=== PATIENT | female | born 1950 | race Caucasian/White ===

== ENCOUNTER 2018-05-07 08:38 | Observation (INO) ==
[2018-05-07] MEDS ORDERED: Pantoprazole 80 MG in 0.9 % Sodium Chloride 50 ML IVPB ONE (09:12)
[2018-05-07] MEDS ORDERED: 0.9 % Sodium Chloride 1,000 ML IVC ONE (09:12)
[2018-05-07] MEDS ORDERED: Ondansetron 4 MG/2 ML VIAL IVP ONE (09:12)
[2018-05-07] MEDS ORDERED: Isovue-370 500 ML INFUS..BTL IV ONE (09:13)
--- NOTE | 2018-05-07 09:25 | Emergency Department Note ---
Disposition Clinical Impression: Hemoptysis Disposition: Admitted As Inpatient Condition: Fair Referrals: Lin Templeton, [employer] [Primary Care Provider] - Forms: ED Satisfaction Letter Time of Disposition: 11:36 General Adult HPI - General Chief complaint: ED Shortness of Breath/Dyspnea Stated complaint: "coughing up blood" Time Seen by Provider: 05/07/18 09:02 Source: patient, family Limitations: no limitations Nursing Notes Reviewed: Yes Vital Signs Reviewed: Yes - History of Present Illness HPI Narrative: 68-year-old female with significant past medical history of breast cancer awaiting radiation once her surgical scar heals presenting to the emergency arch chief complaint of coughing up blood. Patient states it happened 2 times previously and spontaneously resolved. She states this morning she started coughing up large clots of blood. Mixture between dark and bright red. Large quarter size clots. She states she started having some difficulty breathing afterwards. Denies any chest pain, dizziness or syncope. She does state she is currently on Plavix and baby aspirin for previous stent placed 4 years ago. Patient denies any history of blood clots, DVT, PE or GI bleeding. Patient denies any melena, hematochezia, hematuria. Pain Scale: 0 - Related Data Home Medications Medication Instructions Recorded Confirmed Aspirin [Lo-Dose Aspirin EC] 81 mg PO DAILY 07/17/16 02/27/18 Isosorbide MONOnitrate (24 HR) 15 mg PO HS 07/17/16 02/27/18 [Imdur] Levothyroxine [Synthroid] 88 mcg PO MOWEFR 07/17/16 02/27/18 Albuterol Neb [Proventil Neb] 2.5 mg IH Q4HR PRN 01/06/18 02/27/18 Albuterol Sulfate [Proair 2 puff IH Q4H PRN 01/06/18 02/27/18 Respiclick] Clopidogrel [Plavix] 75 mg PO DAILY 01/06/18 02/27/18 Gemfibrozil [Lopid] 600 mg PO HS 01/23/18 02/27/18 Atenolol [Tenormin] 50 mg PO DAILY 02/06/18 02/27/18 Cholecalciferol (D-3) [Vitamin D] 2,000 unit PO DAILY 02/06/18 02/27/18 Lisinopril [Zestril] 20 mg PO HS 02/06/18 02/27/18 Metformin HCl [Glucophage] 1,000 mg PO BID 02/06/18 02/27/18 Venlafaxine HCl [Venlafaxine HCl 37.5 mg PO DAILY 02/06/18 02/27/18 ER] glipiZIDE [Glipizide] 10 mg PO DAILY 02/06/18 02/27/18 Zolpidem [Ambien] 5 mg PO HS PRN 02/18/18 02/27/18 Previous Rx's Medication Instructions Recorded OxyCODONE Immed Rel [Roxicodone 5 5 mg PO Q6HR PRN 5 Days #20 tablet 02/06/18 MG] cephALEXin [Keflex] 500 mg PO TID 14 Days #42 capsule 02/18/18 Allergies Allergy/AdvReac Type Severity Reaction Status Date / Time acetaminophen Allergy Hives Verified 05/07/18 11:34 meperidine [From Demerol] Allergy Hives Verified 05/07/18 11:34 sertraline [From Zoloft] Allergy Swelling Verified 05/07/18 11:34 of Lip/Tongue/Throat terbutaline [From Brethine] Allergy Hives Verified 05/07/18 11:34 All systems ED: reviewed and negative except as stated. Constitutional: Denies: fever, chills, weakness Eyes: Reports: as per HPI ENT ED: Reports: as per HPI Cardiovascular: Denies: chest pain, palpitations, syncope Respiratory: Reports: dyspnea, hemoptysis. Denies: wheezes Gastrointestinal: Denies: abdominal pain, nausea, vomiting, diarrhea, hematochezia Genitourinary: Reports: as per HPI Musculoskeletal: Reports: as per HPI Integumentary: Reports: as per HPI Neurological: Denies: weakness, numbness, paresthesias Psychiatric: Reports: as per HPI Endocrine: Reports: as per HPI Hematological/Lymphatic: Reports: as per HPI Allergic/Immunologic: Reports: as per HPI Past Medical History - Past Medical History Attestation: Yes The following information was validated with the patient. Medical history: Reports: cancer, COPD, diabetes, GERD, hypertension, thyroid disease, other Surgical history: Reports: orthopedic, other, other Psychiatric history: Reports: anxiety, depression, panic disorder - Social History Smoking Status: Former smoker Smokeless Tobacco Status: No Alcohol use: Reports: none Drug use: Reports: none Physical Exam - General Limitations: no limitations General appearance: alert, in no apparent distress - Head Head exam: atraumatic, normocephalic, normal inspection - Eye Eye exam: Present: normal appearance. Absent: scleral icterus, conjunctival injection - ENT ENT exam: normal exam, mucous membranes moist, other (No active bleeding in the posterior oropharynx. No clots noted in the patient's mouth.) - Neck Neck exam: Present: normal inspection, full ROM. Absent: tenderness, meningismus - Chest Chest inspection: Present: normal inspection, symmetric chest wall rise. Absent : tenderness, rash - Expanded Chest Exam Breast: other: left (Clean, dry dressing noted over the inferior base of the left breast.) - Respiratory Respiratory exam: Present: normal lung sounds bilaterally. Absent: respiratory distress, wheezes, stridor - Cardiovascular Cardiovascular exam: Present: regular rate, normal rhythm, normal heart sounds - Abdominal Exam Abdominal exam: Present: soft, Non-Tender. Absent: distention, guarding, rebound - Extremities Exam Extremities exam: Present: normal inspection, full ROM - Neurological Exam Neurological exam: Present: alert, oriented X3 - Psychiatric Psychiatric exam: Present: normal affect, normal mood - Skin Skin exam: Present: warm Course Course Narrative: 68-year-old female presenting with hemoptysis versus hematemesis. Patient is alert and oriented 3 in the room with stable vital signs. We will obtain a CT chest, basic laboratory analysis along with type and screen. We will provide patient with Protonix, Zofran. Disposition will be admission pending results. Patient agrees with this plan. - Reevaluation(s) Reevaluation #1: Patient's laboratory analysis unchanged from baseline. CTA does show concern for right lower lobe pneumonia. Due to patient's hemoptysis will plan to consult pulmonology. I spoke with Dr. Mensah who agrees to see the patient when she is admitted for possible bronch. The patient and the patient at this time for hemoptysis and further evaluation. We will provide the patient with a dose of Levaquin in the emergency department for possible right lower lobe pneumonia. I spoke with hospice on-call Dr. Smith who agrees to accept the patient at this time. Patient is alert and oriented 3 in room stable vital signs. Patient agrees with this plan. Vital Signs Temperature 98.1 F 08/16/18 08:48 Pulse Rate 73 05/07/18 08:48 Respiratory Rate 26 05/07/18 08:48 Blood Pressure 140/85 05/07/18 08:48 O2 Sat by Pulse Oximetry 91 05/07/18 08:48 Temperature 98.1 F 05/07/18 08:54 Pulse Rate 62 05/07/18 10:59 Respiratory Rate 16 05/07/18 10:59 Blood Pressure 115/68 05/07/18 10:59 O2 Sat by Pulse Oximetry 95 05/07/18 10:59 Oxygen Delivery Oxygen Delivery Room Air Medical Decision Making - Lab Data Result diagrams: 05/07/18 09:13 05/07/18 09:13 Lab Results 05/07/18 05/07/18 05/07/18 Range/Units 09:13 09:13 09:13 WBC 9.3 (4.3-11.1) K/mcL RBC 4.19 (3.82-4.97) M/mcL Hgb 11.8 (11.5-15.4) g/dL Hct 35.9 (35.3-44.9) % MCV 85.7 (83.0-100.0) fL MCH 28.2 (28.0-33.3) pg MCHC 32.9 (31.6-35.5) g/dL RDW 13.4 (11.5-14.5) % Plt Count 216 (140-400) K/mcL MPV 9.8 (9.4-12.4) fL Immature Gran % 0.4 (0-4) % Seg Neutrophils % 62.9 % Lymphocytes % 26.7 % Monocytes % 6.2 % Eosinophils % 3.5 % Basophils % 0.3 % Neutrophils # 5.9 (1.6-8.9) K/mcL Lymphocytes # 2.5 (0.6-4.6) K/mcL Monocytes # 0.6 (0.0-1.3) K/mcL Eosinophils # 0.3 (0.0-0.6) K/mcL Basophils # 0.0 (0.0-0.2) K/mcL PT 10.9 (9.4-12.1) Seconds INR 1.0 APTT 33.2 (26.0-36.0) Seconds Sodium 134 L (136-145) mEq/L Potassium 4.1 (3.5-5.1) mEq/L Chloride 105 (98-107) mEq/L Carbon Dioxide 19 L (23-29) mEq/L BUN 16 (8-23) mg/dL Creatinine 0.60 (0.60-1.20) mg/dL Est GFR ( Amer) > 60 (> 60) Est GFR (Non-Af Amer) > 60 (> 60) BUN/Creatinine Ratio 27 H (6-26) Glucose 175 H (70-105) mg/dL Calculated Osmolality 283 (280-300) Calcium 9.3 (8.6-10.3) mg/dL Total Bilirubin 0.4 (0.3-1.0) mg/dL AST 25 (13-39) Units/L ALT 20 (7-52) Units/L Alkaline Phosphatase 56 (34-104) Units/L Serum Total Protein 6.9 (6.4-8.9) g/dL Albumin 4.0 (3.5-5.7) g/dL Globulin 2.9 (2.4-3.5) g/dL Albumin/Globulin Ratio 1.4 (1.1-2.2) - EKG Data EKG #1 EKG attestation: Yes I reviewed and interpreted this EKG. EKG results narrative: Sinus rhythm. 72 bpm. LA interval 144, QRS 82, QTC 436. No signs of acute ST segment elevation or ischemia. Compared to previous EKG completed on 2017 no significant changes noted. Attestation Statement - Attestation Attestation: I, Neel Humphreys DO, examined this patient [id number] and my medical decision-making was reviewed with Dr. Rosmery Martinez, Resident Physician. I agree with the documented findings, disposition and treatment plan as described except to the extent set forth below. Please see my progress notes for details.
[2018-05-07 09:30] LABS: Basophils % 0.3 %; Eosinophils # 0.3 K/mcL (0.0-0.6); Eosinophils % 3.5 %; Hematocrit 35.9 % (35.3-44.9); Hemoglobin 11.8 g/dL (11.5-15.4); Immature Granulocytes % 0.4 % (0-4); Lymphocytes # 2.5 K/mcL (0.6-4.6); Lymphocytes % 26.7 %; Mean Corpuscular HGB Conc 32.9 g/dL (31.6-35.5); Mean Corpuscular Hemoglobin 28.2 pg (28.0-33.3); Mean Corpuscular Volume 85.7 fL (83.0-100.0); Mean Platelet Volume 9.8 fL (9.4-12.4); Monocytes # 0.6 K/mcL (0.0-1.3); Monocytes % 6.2 %; Neutrophils # 5.9 K/mcL (1.6-8.9); Platelet Count 216 K/mcL (140-400); Red Blood Count 4.19 M/mcL (3.82-4.97); Red Cell Distribution Width 13.4 % (11.5-14.5); Segmented Neutrophils % 62.9 %
[2018-05-07 09:37] LABS: Prothrombin Time 10.9 Seconds (9.4-12.1)
[2018-05-07 09:39] LABS: Activated Partial Thrombo Time 33.2 Seconds (26.0-36.0)
[2018-05-07 09:52] LABS: Alanine Aminotransferase 20 Units/L (7-52); Albumin/Globulin Ratio 1.4 (1.1-2.2); Alkaline Phosphatase 56 Units/L (34-104); Aspartate Amino Transferase 25 Units/L (13-39); BUN/Creatinine Ratio 27 (6-26); Bilirubin,Total 0.4 mg/dL (0.3-1.0); Blood Urea Nitrogen 16 mg/dL (8-23); Calcium 9.3 mg/dL (8.6-10.3); Carbon Dioxide 19 mEq/L (23-29); Chloride 105 mEq/L (98-107); Globulin 2.9 g/dL (2.4-3.5); Glucose 175 mg/dL (70-105); Osmolality,Calculated 283 (280-300); Potassium 4.1 mEq/L (3.5-5.1); Sodium 134 mEq/L (136-145); Total Protein 6.9 g/dL (6.4-8.9); eGFR For Non-African Americans > 60 (> 60)
--- NOTE | 2018-05-07 11:00 | Emergency Department Note ---
Disposition Clinical Impression: Hemoptysis, Wound of left breast, Community acquired pneumonia Disposition: Admitted As Inpatient Condition: Fair Time of Disposition: 12:01 General Adult HPI - General Chief complaint: ED Shortness of Breath/Dyspnea Stated complaint: "coughing up blood" Time Seen by Provider: 05/07/18 09:02 Source: patient, family Limitations: no limitations - History of Present Illness Pain Scale: 0 - Related Data Home Medications Medication Instructions Recorded Confirmed Isosorbide MONOnitrate (24 HR) 15 mg PO HS 07/17/16 02/27/18 [Imdur] Albuterol Neb [Proventil Neb] 2.5 mg IH Q4HR PRN 01/06/18 02/27/18 Albuterol Sulfate [Proair 2 puff IH Q4H PRN 01/06/18 02/27/18 Respiclick] Clopidogrel [Plavix] 75 mg PO DAILY 01/06/18 02/27/18 Gemfibrozil [Lopid] 600 mg PO HS 01/23/18 02/27/18 Atenolol [Tenormin] 50 mg PO DAILY 02/06/18 02/27/18 Lisinopril [Zestril] 20 mg PO HS 02/06/18 02/27/18 Metformin HCl [Glucophage] 1,000 mg PO BID 02/06/18 02/27/18 Venlafaxine HCl [Venlafaxine HCl 37.5 mg PO DAILY 02/06/18 02/27/18 ER] glipiZIDE [Glipizide] 10 mg PO DAILY 02/06/18 02/27/18 Zolpidem [Ambien] 5 mg PO HS PRN 02/18/18 02/27/18 Krill/Om-3/Dha/Epa/Phospho/Ast 1 cap PO DAILY 05/07/18 05/07/18 [Krill Oil 1,000 mg Softgel] Thyroid,Pork [Nature-Throid] 65 mg PO DAILY 05/07/18 05/07/18 Allergies Allergy/AdvReac Type Severity Reaction Status Date / Time acetaminophen Allergy Hives Verified 05/07/18 11:34 meperidine [From Demerol] Allergy Hives Verified 05/07/18 11:34 sertraline [From Zoloft] Allergy Swelling Verified 05/07/18 11:34 of Lip/Tongue/Throat terbutaline [From Brethine] Allergy Hives Verified 05/07/18 11:34 Constitutional: Denies: fever, chills, weakness Eyes: Reports: as per HPI ENT ED: Reports: as per HPI Cardiovascular: Denies: chest pain, palpitations, syncope Respiratory: Reports: dyspnea, hemoptysis. Denies: wheezes Gastrointestinal: Denies: abdominal pain, nausea, vomiting, diarrhea, hematochezia Genitourinary: Reports: as per HPI Musculoskeletal: Reports: as per HPI Integumentary: Reports: as per HPI Neurological: Denies: weakness, numbness, paresthesias Psychiatric: Reports: as per HPI Endocrine: Reports: as per HPI Hematological/Lymphatic: Reports: as per HPI Allergic/Immunologic: Reports: as per HPI Past Medical History - Past Medical History Medical history: Reports: cancer, COPD, diabetes, GERD, hypertension, thyroid disease, other Surgical history: Reports: orthopedic, other, other Psychiatric history: Reports: anxiety, depression, panic disorder - Social History Smoking Status: Former smoker Smokeless Tobacco Status: No Alcohol use: Reports: none Drug use: Reports: none Physical Exam - General Limitations: no limitations General appearance: alert, in no apparent distress Course Vital Signs Temperature 98.1 F 05/07/18 08:48 Pulse Rate 73 05/07/18 08:48 Respiratory Rate 26 05/07/18 08:48 Blood Pressure 140/85 05/07/18 08:48 O2 Sat by Pulse Oximetry 91 05/07/18 08:48 Temperature 98.1 F 05/07/18 08:54 Pulse Rate 62 05/07/18 10:59 Respiratory Rate 16 05/07/18 10:59 Blood Pressure 115/68 05/07/18 10:59 O2 Sat by Pulse Oximetry 95 05/07/18 10:59 Oxygen Delivery Oxygen Delivery Room Air Medical Decision Making - Lab Data Result diagrams: 05/07/18 09:13 05/07/18 09:13 Lab Results 05/07/18 05/07/18 05/07/18 Range/Units 09:13 09:13 09:13 WBC 9.3 (4.3-11.1) K/mcL RBC 4.19 (3.82-4.97) M/mcL Hgb 11.8 (11.5-15.4) g/dL Hct 35.9 (35.3-44.9) % MCV 85.7 (83.0-100.0) fL MCH 28.2 (28.0-33.3) pg MCHC 32.9 (31.6-35.5) g/dL RDW 13.4 (11.5-14.5) % Plt Count 216 (140-400) K/mcL MPV 9.8 (9.4-12.4) fL Immature Gran % 0.4 (0-4) % Seg Neutrophils % 62.9 % Lymphocytes % 26.7 % Monocytes % 6.2 % Eosinophils % 3.5 % Basophils % 0.3 % Neutrophils # 5.9 (1.6-8.9) K/mcL Lymphocytes # 2.5 (0.6-4.6) K/mcL Monocytes # 0.6 (0.0-1.3) K/mcL Eosinophils # 0.3 (0.0-0.6) K/mcL Basophils # 0.0 (0.0-0.2) K/mcL PT 10.9 (9.4-12.1) Seconds INR 1.0 APTT 33.2 (26.0-36.0) Seconds Sodium 134 L (136-145) mEq/L Potassium 4.1 (3.5-5.1) mEq/L Chloride 105 (98-107) mEq/L Carbon Dioxide 19 L (23-29) mEq/L BUN 16 (8-23) mg/dL Creatinine 0.60 (0.60-1.20) mg/dL Est GFR ( Amer) > 60 (> 60) Est GFR (Non-Af Amer) > 60 (> 60) BUN/Creatinine Ratio 27 H (6-26) Glucose 175 H (70-105) mg/dL Calculated Osmolality 283 (280-300) Calcium 9.3 (8.6-10.3) mg/dL Total Bilirubin 0.4 (0.3-1.0) mg/dL AST 25 (13-39) Units/L ALT 20 (7-52) Units/L Alkaline Phosphatase 56 (34-104) Units/L Serum Total Protein 6.9 (6.4-8.9) g/dL Albumin 4.0 (3.5-5.7) g/dL Globulin 2.9 (2.4-3.5) g/dL Albumin/Globulin Ratio 1.4 (1.1-2.2) Blood Type Antibody Screen 05/07/18 Range/Units 10:49 WBC (4.3-11.1) K/mcL RBC (3.82-4.97) M/mcL Hgb (11.5-15.4) g/dL Hct (35.3-44.9) % MCV (83.0-100.0) fL MCH (28.0-33.3) pg MCHC (31.6-35.5) g/dL RDW (11.5-14.5) % Plt Count (140-400) K/mcL MPV (9.4-12.4) fL Immature Gran % (0-4) % Seg Neutrophils % % Lymphocytes % % Monocytes % % Eosinophils % % Basophils % % Neutrophils # (1.6-8.9) K/mcL Lymphocytes # (0.6-4.6) K/mcL Monocytes # (0.0-1.3) K/mcL Eosinophils # (0.0-0.6) K/mcL Basophils # (0.0-0.2) K/mcL PT (9.4-12.1) Seconds INR APTT (26.0-36.0) Seconds Sodium (136-145) mEq/L Potassium (3.5-5.1) mEq/L Chloride (98-107) mEq/L Carbon Dioxide (23-29) mEq/L BUN (8-23) mg/dL Creatinine (0.60-1.20) mg/dL Est GFR ( Amer) (> 60) Est GFR (Non-Af Amer) (> 60) BUN/Creatinine Ratio (6-26) Glucose (70-105) mg/dL Calculated Osmolality (280-300) Calcium (8.6-10.3) mg/dL Total Bilirubin (0.3-1.0) mg/dL AST (13-39) Units/L ALT (7-52) Units/L Alkaline Phosphatase (34-104) Units/L Serum Total Protein (6.4-8.9) g/dL Albumin (3.5-5.7) g/dL Globulin (2.4-3.5) g/dL Albumin/Globulin Ratio (1.1-2.2) Blood Type O POSITIVE Antibody Screen NEGATIVE Attestation Statement - Attestation Attestation: I, Neel Humphreys DO, examined this patient [id number] and my medical decision-making was reviewed with Dr. Rosmery Martinez, Resident Physician. I agree with the documented findings, disposition and treatment plan as described except to the extent set forth below. Please see my progress notes for details. 68-year-old female presents to the emergency room with gross hemoptysis this morning times multiple events. Patient is a routing like this before. She did just have a mastectomy completed on the left side of her chest wall secondary to breast cancer. She is scheduled to start radiation therapy once the wound has healed. She denies any falls trauma or injury. She is on Plavix and aspirin secondary to a cardiac stents that were placed several years ago. She denies chest pain shortness of breath headache vision changes fevers or chills. She has had nausea but no vomiting or diarrhea. Her main complaint is a cough with hemoptysis. On physical exam the patient is resting comfortably in the bed she is hemodynamically stable she does have what they show addresses blood clots that she coughs up. Patient is not actively hemodynamically unstable at this time. Her lungs are clear heart is regular the wound site on the chest wall appears to be healing appropriately. Abdomen is soft nontender nondistended. Concern is noted for surgical related issue versus cancer in the lungs causing janae blood in the aspirate or expectorant. Patient was CT angiography of the chest completed along with screening labs including type and screen and CBC with platelet count. Patient will have fluid started this time Protonix will be given in case this is an upper GI bleed she does not have any history of gastric ulcers or other etiology. Disposition pending the full workup see detailed documentation of the physical exam, medical intervention, medical decision-making and disposition in the resident physician's note. No critical care provider the patient's treatment course. [address] angiography that is concerning for possible pneumonia versus fluid accumulation in the mainstem bronchus of the right side. There is concern of aspiration versus gross critical pulmonary hemorrhage at this time. Patient again denies hematemesis but has had hemoptysis. Pulmonology will be contacted this time. Patient has been hemodynamically stable here in the emergency room. Admission process will be recommended once the consultation with pulmonology has been completed. 1130 Patient was discussed with the hospitalist as well as pulmonology. Admission process to be established. Antibiotics will be kept at the treatment course will be required pneumonia and not aspiration at this time and was advised to the hospitals. No critical care applied.
[2018-05-07] MEDS ORDERED: Levofloxacin 750 MG/150 ML 750 MG/150 ML BAG IVPB ONE (11:34)
--- NOTE | 2018-05-07 13:38 | Pulmonology Consult Note ---
<Mustapha Fontana W - Last Filed: 05/07/18 17:52> Date of Encounter: 05/07/18 Medications and Allergies Isosorbide MONOnitrate (24 HR) [Imdur] 15 mg PO HS 07/17/16 [History] Albuterol Neb [Proventil Neb] 2.5 mg IH Q4HR PRN 01/06/18 [History] Albuterol Sulfate [Proair Respiclick] 2 puff IH Q4H PRN 01/06/18 [History] Clopidogrel [Plavix] 75 mg PO DAILY 01/06/18 [History] Gemfibrozil [Lopid] 600 mg PO HS 01/23/18 [History] Atenolol [Tenormin] 50 mg PO DAILY 02/06/18 [History] Lisinopril [Zestril] 20 mg PO HS 02/06/18 [History] Metformin HCl [Glucophage] 1,000 mg PO BID 02/06/18 [History] Venlafaxine HCl [Venlafaxine HCl ER] 37.5 mg PO DAILY 02/06/18 [History] glipiZIDE [Glipizide] 10 mg PO DAILY 02/06/18 [History] Zolpidem [Ambien] 5 mg PO HS PRN 02/18/18 [History] Krill/Om-3/Dha/Epa/Phospho/Ast [Krill Oil 1,000 mg Softgel] 1 cap PO DAILY 05/07 [History] Thyroid,Pork [Nature-Throid] 65 mg PO DAILY 05/07/18 [History] 3 Allergy/AdvReac Type Severity Reaction Status Date / Time acetaminophen Allergy Hives Verified 05/07/18 11:34 meperidine [From Demerol] Allergy Hives Verified 05/07/18 11:34 sertraline [From Zoloft] Allergy Swelling Verified 05/07/18 11:34 of Lip/Tongue/Throat terbutaline [From Brethine] Allergy Hives Verified 05/07/18 11:34 All Systems: The remainder of the systems were reviewed and are negative Physical Examination Vital Signs: Vital Signs, Last 4 Hours Temp Pulse Resp BP Pulse Ox 05/07/18 13:40 97.9 F 65 18 128/82 95 Results - Laboratory Findings CBC and BMP: 05/07/18 09:13 05/07/18 09:13 PT/INR, D-dimer PT 10.9 Seconds (9.4-12.1) 05/07/18 09:13 Abnormal lab findings: Abnormal lab results Sodium 134 mEq/L (136-145) L 05/07/18 09:13 Carbon Dioxide 19 mEq/L (23-29) L 05/07/18 09:13 BUN/Creatinine Ratio 27 (6-26) H 05/07/18 09:13 Glucose 175 mg/dL (70-105) H 05/07/18 09:13 - Clinical Findings Intake & Output: Intake & Output 05/06/18 05/07/18 05/07/18 23:59 07:59 15:59 Output Total 600 / 600 Balance -600 / -550 Weight 73.255 kg Consult Discharge Plan - Plan Referrals: Lin Templeton, TIE SAWYER [Primary Care Provider] - - Attending Attestation I examined this patient and my medical decision-making was reviewed with the Resident Physician. I agree with the documented findings, disposition and treatment plan as described except to the extent set forth below. We independently had [id number] contact with the patient Patient seen and examined at bedside Labs, radiology, chart personally reviewed. Impression: Minor hemoptysis I suspect this is related to infectious process suspected pneumonia. COPD Former smoker Breast CA Recs: -Send sputum and blood cultures if not already obtained urine Legionella and strep pneumo antigens also respiratory infection panel for PCR -A bronchoscopy is recommended. The procedure , risks, benefits, complications, and expected outcomes have been reviewed. Benefits of diagnosis, as well as risks to include bleeding, infection, pneumothorax which may require surgical intervention, and in a small population. The patient is aware that sometimes test is nondiagnostic. Discussed with patient and agrees to proceed. Please keep patient nothing by mouth at midnight -Agree with antimicrobials Levaquin is appropriate choice for community associated organisms -Prednisone 40 mg daily plan on a 5 day burst -Schedule bronchodilators (duo nebs) every 6 hours -Cough suppression <Juarez Katz - Last Filed: 05/07/18 19:05> Date of Encounter: 05/07/18 Time of Encounter: 13:31 Assessment and Plan (1) Hemoptysis Current Visit: Yes Status: Acute Cause unclear at this time however concern for infectious etiology given the changes on CT scan. Hemoglobin stable, does not appear to be massive hemoptysis. We will proceed with infectious workup including blood and sputum cultures, agree with empiric Levaquin. Plan for bronchoscopy in the morning. Nothing by mouth at midnight. (2) COPD (chronic obstructive pulmonary disease) Current Visit: Yes Status: Acute Patient reports that she has COPD but does not use oxygen only uses albuterol inhaler as needed. She states that she has been prescribed maintenance inhalers in the past but is been unable to able to afford them. Patient does have some wheezing on exam so we will start steroids, continue as needed bronchodilators. After procedure tomorrow we will consider starting Symbicort here. Recommend outpatient follow-up with pulmonology. Qualifiers: COPD type: unspecified COPD Qualified Code(s): J44.9 - Chronic obstructive pulmonary disease, unspecified (3) Breast cancer Current Visit: No Status: Acute Qualifiers: Breast location: lower inner quadrant of breast Estrogen receptor status: positive Patient sex: female Laterality: left Qualified Code(s): C50.312 - Malignant neoplasm of lower-inner quadrant of left female breast; Z17.0 - Estrogen receptor positive status [ER+] History of Present Illness Consult date: 05/07/18 Requesting physician: Rosmery Martinez Reason for consult: other (Hemoptysis) Chief complaint: Hemoptysis History of present illness: Patient is a 68-year-old female with history of COPD, coronary disease, stage I lobular carcinoma the breast presents with hemoptysis. Patient states that she woke up at 6:30 this morning with a cough and had several episodes of coughing up blood. She states initially it was dark red and turned into a more bright red. She was unable to quantify it however does not think that she coughed up enough to fill a small cup. She states she had one episode of coughing up blood in the past after she was intubated for surgery. That episode resolved spontaneously and was felt to be related to the endotracheal tube. Other than that she has never had an episode of emesis. Prior to this morning she was in her normal state of health. She denies any recent fever, chills, chest pain, shortness of breath, increased sputum production. She denies any history of bleeding disorders, she is on aspirin and Plavix for coronary artery disease, with her most recent stent placed 4 years ago. She takes no other blood thinners. Past Med Surg Social Fam HX - Past Medical History Medical history: cancer, COPD, diabetes, GERD, hypertension, thyroid disease, other Additional medical history: fatty liver Psychiatric history: anxiety, depression, panic disorder - Past Surgical History Surgical History: orthopedic, other, other Additional surgical history: lumpectomy to left breast; neck fusion - Social History Smoking Status: Former smoker Smokeless Tobacco Status: No Alcohol use: none Drug use: none - Family History Mother Living Status: Hx Family Cardiac Disorders: Yes ([place]) Father Hx Family Cardiac Disorders: Yes ([place]; HTN) Son Living Status: Hx Family Cardiac Disorders: Yes ([place]) All Systems: The remainder of the systems were reviewed and are negative - Constitutional Constitutional: no chills, no fever(s) - EENT Nose, mouth and throat: no nasal congestion, no nasal obstruction, no sore throat - Cardiovascular Cardiovascular: no chest pain, no dyspnea, no edema, no orthopnea - Respiratory Respiratory: cough, hemoptysis, no dyspnea, no wheezing, no chest congestion, no excessive phlegm production, no change in phlegm color, no pain with cough - Gastrointestinal Gastrointestinal: no hematemesis, no hematochezia, no nausea, no vomiting - Genitourinary Genitourinary: breast mass, no dysuria - Musculoskeletal Musculoskeletal: no numbness, no tingling - Neurological Neurological: no numbness, no syncope, no tingling - Psychiatric Psychiatric: no anxiety, no depression - Endocrine Endocrine: no palpitations - Hematologic/Lymphatic Hematologic/Lymphatic: no easy bleeding, no easy bruising, no lymphadenopathy Physical Examination General appearance: no acute distress ENT: oropharynx moist Effort: normal Auscultation: bilateral: clear Cardiovascular: regular rate and rhythm Gastrointestinal: normoactive bowel sounds, soft, non-tender Extremities: no cyanosis, no edema, no clubbing normal mental status, non-focal exam mood appropriate, affect normal Results - Laboratory Findings CBC and BMP: 05/07/18 09:13 05/07/18 09:13 PT/INR, D-dimer PT 10.9 Seconds (9.4-12.1) 05/07/18 09:13 Abnormal lab findings: Abnormal lab results Sodium 134 mEq/L (136-145) L 05/07/18 09:13 Carbon Dioxide 19 mEq/L (23-29) L 05/07/18 09:13 BUN/Creatinine Ratio 27 (6-26) H 05/07/18 09:13 Glucose 175 mg/dL (70-105) H 05/07/18 09:13
[2018-05-07] MEDS ORDERED: Naloxone 0.4 MG/ML INJ IVP PRN (13:48)
[2018-05-07] MEDS ORDERED: Albuterol 2.5 MG/3 ML NEBULIZER IH PRN ×2 (13:53→13:57)
[2018-05-07] MEDS ORDERED: NON-FORMULARY MEDICATION 1 EACH EACH (Albuterol Sulfate [Proair Respiclick] 2 PUFF) IH PRN (13:53)
[2018-05-07] MEDS ORDERED: Dextrose Gel 15 GM/37.5 ML TUBE PO PRN ×2 (13:55)
[2018-05-07] MEDS ORDERED: D5% in Water 1,000 ML IVC PRN (13:55)
[2018-05-07] MEDS ORDERED: *HR* Dextrose 50 % in Water (Syg) 50 ML SYRINGE IVP PRN (13:55)
--- NOTE | 2018-05-07 15:23 | Internal Med History&Physical ---
Date of Encounter: 05/07/18 Time of Encounter: 10:00 Internal Medicine - H&P: HPI Chief complaint: Hemoptysis History of present illness: Ms. Trimble is a 68 year old female present to ER for hemoptysis. Past medical history is significant for diabetes, COPD, fatty liver, CAD S/P stent, thyroid disease, breast cancer S/P surgery with unhealing wound. Patient said the started from this morning 6:30 am, she has cough with blood clot come out. The blood is pure blood at the beginning, then blood mixed with sputum. The blood color is dark at the beginning, then change to bright red blood. Patient has shortness of breath. No fever, no chest pain, no nausea, no vomiting. Patient said she has several times of pure blood hemoptysis. In the emergency room, CTA has been done, negative for PE, suggested pneumonia. Patient was started with Levaquin. Pulmonology consult was called by ER. Past Med Surg Social Fam HX - Past Medical History Medical history: cancer, COPD, diabetes, GERD, hypertension, thyroid disease, other Additional medical history: fatty liver Psychiatric history: anxiety, depression, panic disorder - Past Surgical History Surgical History: orthopedic, other, other Additional surgical history: lumpectomy to left breast; neck fusion - Social History Smoking Status: Former smoker Smokeless Tobacco Status: No Alcohol use: none Drug use: none - Family History Mother Living Status: Age at : 55 Cause of : mi Hx Family Cardiac Disorders: Yes ([place]) Father Age at : 36 Cause of : mi Hx Family Cardiac Disorders: Yes ([place]; HTN) Son Living Status: Hx Family Cardiac Disorders: Yes ([place]) Internal Medicine - H&P: Meds Isosorbide MONOnitrate (24 HR) [Imdur] 15 mg PO HS 07/17/16 [History] Albuterol Neb [Proventil Neb] 2.5 mg IH Q4HR PRN 01/06/18 [History] Albuterol Sulfate [Proair Respiclick] 2 puff IH Q4H PRN 01/06/18 [History] Clopidogrel [Plavix] 75 mg PO DAILY 01/06/18 [History] Gemfibrozil [Lopid] 600 mg PO HS 01/23/18 [History] Atenolol [Tenormin] 50 mg PO DAILY 02/06/18 [History] Lisinopril [Zestril] 20 mg PO HS 02/06/18 [History] Metformin HCl [Glucophage] 1,000 mg PO BID 02/06/18 [History] Venlafaxine HCl [Venlafaxine HCl ER] 37.5 mg PO DAILY 02/06/18 [History] glipiZIDE [Glipizide] 10 mg PO DAILY 02/06/18 [History] Zolpidem [Ambien] 5 mg PO HS PRN 02/18/18 [History] Krill/Om-3/Dha/Epa/Phospho/Ast [Krill Oil 1,000 mg Softgel] 1 cap PO DAILY 05/07 [History] Thyroid,Pork [Nature-Throid] 65 mg PO DAILY 05/07/18 [History] 3 Allergy/AdvReac Type Severity Reaction Status Date / Time acetaminophen Allergy Hives Verified 05/07/18 11:34 meperidine [From Demerol] Allergy Hives Verified 05/07/18 11:34 sertraline [From Zoloft] Allergy Swelling Verified 05/07/18 11:34 of Lip/Tongue/Throat terbutaline [From Brethine] Allergy Hives Verified 05/07/18 11:34 All Systems PM: A 10-system review of systems was performed and is negative for pertinent findings except as documented above in the HPI. - Constitutional Vitals: Temp Pulse Resp BP Pulse Ox 97.9 F 65 18 128/82 95 05/07/18 13:40 05/07/18 13:40 05/07/18 13:40 05/07/18 13:40 05/07/18 13:40 General appearance: Present: A&O X 3, no acute distress, answers questions appropriately - Head Head exam: Present: atraumatic, normocephalic - Eye Eye exam: Present: PERRL, conjuntiva pink, sclera anicteric Pupils: Present: PERRL - Neck Neck exam general surgery: Present: supple, trachea midline. Absent: lymphadenopathy - Respiratory Respiratory exam: Present: CTAB. Absent: accessory muscle use, rales, rhonchi, wheezes Additional comments: Coarse breath sound bilaterally - Cardiovascular Cardiovascular exam: Present: RRR, +S1, +S2. Absent: diastolic murmur, gallop, rubs, systolic murmur - GI/Abdominal GI/Abdominal exam: Present: normal bowel sounds, soft, no peritoneal signs. Absent: distended, tenderness - Extremities Exam Extremities exam: Present: warm, radial pulses palpable and symmetrical. Absent : calf tenderness, cyanotic, pedal edema - Neurological Exam Neurological exam: Present: CN II-XII intact, oriented X3, no focal deficits. Absent: pronater drift, facial droop, speech deficit - Skin Skin exam: Present: dry, intact Internal Med - H&P Results - Labs CBC & Chem 7: 05/07/18 09:13 05/07/18 09:13 - Assessment and plan (1) COPD (chronic obstructive pulmonary disease) Current Visit: Yes Status: Acute Assessment and plan: No wheezing. Continue home medications albuterol inhaler Qualifiers: COPD type: unspecified COPD Qualified Code(s): J44.9 - Chronic obstructive pulmonary disease, unspecified (2) Community acquired pneumonia Current Visit: Yes Status: Acute Assessment and plan: CTA shows right lower lobe infiltrate. Patient denies history of aspiration. Consider community acquired pneumonia. Continue Levaquin IV. Place cough syrup for symptomatic control Qualifiers: Laterality: right Lung location: lower lobe of lung Qualified Code(s): J18.1 - Lobar pneumonia, unspecified organism (3) Hemoptysis Current Visit: Yes Status: Acute Assessment and plan: Etiology is undetermined. Consult pulmonology and plan for bronchoscope. (4) Wound of left breast Current Visit: Yes Status: Acute Assessment and plan: We will consult wound care and continue daily wound care Qualifiers: Encounter type: initial encounter Qualified Code(s): S21.002A - Unspecified open wound of left breast, initial encounter - Time Spent With Patient Total time spent is greater than 50% in coordination of care (as documented) at patient's floor/unit and/or counseling patient: 30 minutes 25 - 35 minutes
--- NOTE | 2018-05-07 17:22 | Electrocardiograph Report ---
[address] [address] Test Date: 2018-05-07 Pat Name: Michelle Trimble Department: Room: 2A26 Gender: F Equipment Operat0R: : 1950 Requested By: Rosmery Martinez Order Number: [id number] Reading MD: Antonia Richmond Measurements Intervals [place] Rate: 73 P: 4 VT: 144 QRS: -1 QRSD: 82 T: 40 QT: 395 QTc: 436 Interpretive Statements Sinus rhythm Electronically Signed On 05-07-2018 17:20:37 EDT by Antonia Richmond
[2018-05-07] MEDS: Insulin LISPRO 300 UNITS/3 ML VIAL SQ SCH (18:04)
[2018-05-07] MEDS ORDERED: Benzonatate 100 MG CAPSULE PO PRN (18:24)
[2018-05-07] MEDS ORDERED: methylPREDNISolone 125 MG/2 ML VIAL IVP ONE (18:45)
[2018-05-07] MEDS ORDERED: Isosorbide MONOnitrate (24 HR) 30 MG TAB.ER.24H PO SCH (21:00)
[2018-05-07] MEDS ORDERED: Lisinopril 20 MG TABLET PO SCH (21:00)
[2018-05-07] MEDS ORDERED: Insulin LISPRO 300 UNITS/3 ML VIAL SQ SCH (21:00)
[2018-05-07 22:03] LABS: Bilirubin,Urine Negative (Negative); Blood,Urine Negative (Negative); Clarity,Urine Clear (Clear); Color,Urine Yellow (Yellow); Glucose,Urine (UA) 250 mg/dL (Normal); Ketones,Urine Negative (Negative); Leukocyte Esterase,Urine Negative (Negative); Nitrite,Urine Negative (Negative); Protein,Urine Negative (Neg-Trace); Specific Gravity,Urine 1.024 (1.010-1.025); Urobilinogen,Urine Normal (Normal)
[2018-05-08 03:51] LABS: Adenovirus Not Detected (Not Detect); Bordetella Pertussis Not Detected (Not Detect); Chlamydophila pneumoniae Not Detected (Not Detect); Coronavirus 229E Not Detected (Not Detect); Coronavirus HKU1 Not Detected (Not Detect); Coronavirus NL63 Not Detected (Not Detect); Coronavirus OC43 Not Detected (Not Detect); Human Metapneumovirus Not Detected (Not Detect); Human Rhinovirus/Enterovirus Not Detected (Not Detect); Influenza A Subtype 2009 H1 Not Detected (Not Detect); Influenza A Untypeable Not Detected (Not Detect); Influenza B Not Detected (Not Detect); Mycoplasma pneumoniae Not Detected (Not Detect); Parainfluenza Virus 1 Not Detected (Not Detect); Parainfluenza Virus 2 Not Detected (Not Detect); Parainfluenza Virus 3 Not Detected (Not Detect); Parainfluenza Virus 4 Not Detected (Not Detect); Respiratory Syncytial Virus Not Detected (Not Detect)
[2018-05-08 04:27] LABS: Basophils % 0.1 %; Eosinophils % 0.1 %; Hematocrit 37.1 % (35.3-44.9); Immature Granulocytes % 0.6 % (0-4); Lymphocytes # 1.5 K/mcL (0.6-4.6); Lymphocytes % 17.7 %; Mean Corpuscular HGB Conc 32.3 g/dL (31.6-35.5); Mean Corpuscular Hemoglobin 27.6 pg (28.0-33.3); Mean Corpuscular Volume 85.5 fL (83.0-100.0); Mean Platelet Volume 9.7 fL (9.4-12.4); Monocytes # 0.1 K/mcL (0.0-1.3); Monocytes % 0.7 %; Neutrophils # 6.9 K/mcL (1.6-8.9); Platelet Count 222 K/mcL (140-400); Red Blood Count 4.34 M/mcL (3.82-4.97); Red Cell Distribution Width 13.3 % (11.5-14.5); Segmented Neutrophils % 80.8 %
[2018-05-08 04:32] LABS: INR 1.1; Prothrombin Time 12.6 Seconds (9.4-12.1)
[2018-05-08 04:46] LABS: BUN/Creatinine Ratio 22 (6-26); Blood Urea Nitrogen 15 mg/dL (8-23); Calcium 9.5 mg/dL (8.6-10.3); Carbon Dioxide 22 mEq/L (23-29); Chloride 104 mEq/L (98-107); Glucose 305 mg/dL (70-105); Osmolality,Calculated 294 (280-300); Potassium 4.8 mEq/L (3.5-5.1); Sodium 136 mEq/L (136-145); eGFR For Non-African Americans > 60 (> 60)
[2018-05-08] MEDS ORDERED: THYROID PORK 65 MG PO SCH (06:30)
[2018-05-08] MEDS: Insulin LISPRO 300 UNITS/3 ML VIAL SQ SCH ×3 (07:41→17:33)
[2018-05-08] MEDS ORDERED: Ringers Solution, Lactated 1,000 ML IVC SCH (08:00)
[2018-05-08] MEDS ORDERED: *HR* Midazolam HCl 5 MG/5 ML VIAL IVP ONE ×2 (08:00→09:50)
[2018-05-08] MEDS ORDERED: *HR* FentaNYL (PF) 100 MCG/2 ML VIAL IVP ONE (08:00)
[2018-05-08] MEDS ORDERED: Lidocaine Viscous Oral Soln 15 ML SOLUTION MM ONE (08:00)
[2018-05-08] MEDS ORDERED: Tetracaine/Benzocaine/Butamben 200MG/SPRAY (100SPY/BOT) MM ONE (08:00)
--- NOTE | 2018-05-08 08:00 | Pulmonology Progress Note ---
<Juarez Katz - Last Filed: 05/08/18 08:03> Date of Encounter: 05/08/18 Time of Encounter: 07:57 Assessment and Plan (1) Hemoptysis Current Visit: Yes Status: Acute Slightly improved although still present. Likely cause is infectious. Patient is on Levaquin for antibiotic coverage. Blood cultures and sputum cultures pending. Plan for bronchoscopy today for airway inspection and BAL (2) COPD (chronic obstructive pulmonary disease) Current Visit: Yes Status: Acute Patient reports COPD states she does not use maintenance inhalers at home due to cost. Has mild wheezing on exam. Treating for exacerbation with breathing treatments, steroids, antibiotics. We will start Symbicort today after the procedure and recommend outpatient pulmonary follow-up. Qualifiers: COPD type: unspecified COPD Qualified Code(s): J44.9 - Chronic obstructive pulmonary disease, unspecified (3) Breast cancer Current Visit: No Status: Acute Awaiting initiation of treatment. Qualifiers: Breast location: lower inner quadrant of breast Estrogen receptor status: positive Patient sex: female Laterality: left Qualified Code(s): C50.312 - Malignant neoplasm of lower-inner quadrant of left female breast; Z17.0 - Estrogen receptor positive status [ER+] Subjective Principal diagnosis: Hemoptysis Interval history: Patient seen and examined at bedside. Patient states that she has had some chest tightness overnight. She has had an occasional cough that is nonproductive. Reports minimal hemoptysis. Denies fever, chills. Objective PUL Vital signs: Last Vital Signs Temp 98.0 F 05/08/18 07:21 Pulse 77 05/08/18 07:21 Resp 18 05/08/18 07:21 BP 99/62 05/08/18 07:21 Pulse Ox 94 05/08/18 07:21 General appearance: no acute distress ENT: oropharynx moist Effort: normal Auscultation: bilateral: rhonchi (Bilateral Bases) Results - Laboratory Findings CBC and BMP: 05/08/18 04:04 05/08/18 04:04 PT/INR, D-dimer PT 12.6 Seconds (9.4-12.1) H 05/08/18 04:04 Abnormal lab findings: Abnormal lab results MCH 27.6 pg (28.0-33.3) L 05/08/18 04:04 PT 12.6 Seconds (9.4-12.1) H 05/08/18 04:04 Carbon Dioxide 22 mEq/L (23-29) L 05/08/18 04:04 Glucose 305 mg/dL (70-105) H 05/08/18 04:04 POC Glucose 246 mg/dL (70-99) H 05/08/18 05:47 Urine Glucose (UA) 250 mg/dL (Normal) H 05/07/18 21:58 - Microbiology Findings Microbiology Findings: Microbiology, Last 48 Hours 05/07/18 21:58 Legionella Antigen - Final Urine,Clean Catch Streptococcus pneumoniae Antigen (M - Final - Clinical Findings Intake & Output: Intake & Output 05/07/18 05/07/18 05/08/18 15:59 23:59 07:59 Output Total 600 / 600 400 / 400 Balance -600 / -550 -400 / -400 Weight 73.255 kg 73.8 kg - VTE Documentation of Mechanical Device: Intermittent pneumatic compression device Consult Discharge Plan - Plan Referrals: Lin Templeton, [employer] [Primary Care Provider] - <Mustapha Fontana - Last Filed: 05/08/18 11:23> Date of Encounter: 05/08/18 Objective PUL Vital signs: Last Vital Signs Temp 98.3 F 05/08/18 09:43 Pulse 118 05/08/18 10:44 Resp 28 05/08/18 10:44 BP 172/92 05/08/18 10:44 Pulse Ox 94 05/08/18 10:44 Results - Laboratory Findings CBC and BMP: 05/08/18 04:04 05/08/18 04:04 PT/INR, D-dimer PT 12.6 Seconds (9.4-12.1) H 05/08/18 04:04 Abnormal lab findings: Abnormal lab results MCH 27.6 pg (28.0-33.3) L 05/08/18 04:04 PT 12.6 Seconds (9.4-12.1) H 05/08/18 04:04 Carbon Dioxide 22 mEq/L (23-29) L 05/08/18 04:04 Glucose 305 mg/dL (70-105) H 05/08/18 04:04 POC Glucose 246 mg/dL (70-99) H 05/08/18 05:47 Urine Glucose (UA) 250 mg/dL (Normal) H 05/07/18 21:58 - Microbiology Findings Microbiology Findings: Microbiology, Last 48 Hours 05/07/18 21:58 Legionella Antigen - Final Urine,Clean Catch Streptococcus pneumoniae Antigen (M - Final - Clinical Findings Intake & Output: Intake & Output 05/07/18 05/08/18 05/08/18 23:59 07:59 15:59 Output Total 400 / 400 Balance -400 / -400 Weight 73.8 kg - Attending Attestation I examined this patient and my medical decision-making was reviewed with the Resident Physician. I agree with the documented findings, disposition and treatment plan as described except to the extent set forth below. We independently had [id number] contact with the patient Patient seen and examined at bedside Labs, radiology, chart personally reviewed. Impression: * Minor hemoptysis * Community-acquired pneumonia * COPD with exacerbation * Recent diagnosis of breast cancer Bronchoscopy was performed today which was notable for adherent blood clot in the right lower lobe a large portion of this clot was able to be suctioned out or removed via snare however there was some residual obstructive clot in the right lower lobe. Subsequent to this clot and endobronchial lesion cannot be fully excluded at this point however my overall impression is that this is hemoptysis secondary to pneumonia. Clearly she will be at increased risk for malignancy given she has an active malignancy at this time however I think her risk is only slightly increased given that this likely represents limited stage breast cancer. Recs: -Continue treatment for community-acquired pneumonia pending sputum/BAL results- She will likely need treatment for a total of 8 days I suspect she could be de- escalated to oral respiratory fluoroquinolone to complete her course of antibiotics -She will need pulmonary follow-up with a repeat CT scan in 4-6 weeks if abnormalities persist or hemoptysis returns she will need repeat bronchoscopy for further clarification of underlying anatomy of the right lower lobe -She should have scheduled bronchodilators -She will need of at least 5 day burst of prednisone a need to taper this over the next 2 weeks 40 mg of prednisone is a reasonable place to start -She has been unable to afford commercially manufactured handheld combination inhalers. She would be a good candidate for home-going bronchodilators with nebulizer scheduled on the daily basis Please call with any questions
--- NOTE | 2018-05-08 08:00 | Pre-Sedation Evaluation ---
Pre-sedation evaluation - Pre-sedation checklist Date of procedure: 05/08/18 Procedure: Bronchoscopy Recent Vitals: Last Vital Signs Temp 98.0 F 05/08/18 07:21 Pulse 77 05/08/18 07:21 Resp 18 05/08/18 07:21 BP 99/62 05/08/18 07:21 Pulse Ox 94 05/08/18 07:21 H&P (including ROS) documented in medical record: Yes Previous reaction to sedatives/anesthetics: No Dietary Status: NPO after Midnight Airway Assessment: Patient can open mouth completely, TMJ function normal Dentition: No loose teeth or bridges, dentures removed Possible difficult airway: No ASA Classification *see protocol: CLASS II-Mild systemic disease Plan of Care: Pt appropriate candidate for procedure/moderate/conscious sedation , Risks/benefits of procedure/sedation discussed w/ patient/family Cardiac Registry (Cardio Only) - Functional Capacity - Clincal Frailty Scale
[2018-05-08] MEDS ORDERED: Venlafaxine XR (24 HR) 37.5 MG CAP.ER.24H PO SCH (09:00)
[2018-05-08] MEDS ORDERED: predniSONE 20 MG TABLET PO SCH (09:00)
[2018-05-08] MEDS ORDERED: Levofloxacin 750 MG/150 ML 750 MG/150 ML BAG IVPB SCH (09:00)
[2018-05-08] MEDS ORDERED: *HR* FentaNYL (PF) 100 MCG/2 ML VIAL ONE (09:50)
[2018-05-08] MEDS ORDERED: Lidocaine Viscous Oral Soln 15 ML SOLUTION ONE (09:50)
[2018-05-08 14:27] LABS: Appearance of Body Fluid Hazy (Clear); Volume of Body Fluid 11 mL
--- NOTE | 2018-05-08 15:26 | Discharge Summary ---
Orders not resulted at time of discharge: Pending orders 05/07/18 16:04 Culture,Sputum with Gram Stain [RM] Routine 05/08/18 01:15 Culture,Wound [RM] Routine 05/08/18 11:04 Cytology [PTH] Routine 05/08/18 11:10 AFB Culture, Tissue [TB] Routine Fungal Culture [MYC] Routine Surgical Pathology [PTH] Routine 05/08/18 11:50 AFB Culture, Respiratory [TB] Routine Culture,Respiratory [RM] Routine Culture,Respiratory [RM] Routine Fungal Culture [MYC] Routine Legionella Culture [RM] Routine Resp.Virus Panel,Body Fl Routine Date of Encounter: 05/08/18 Time of Encounter: 15:24 - Discharge Diagnosis (1) Community acquired pneumonia Priority: Primary Status: Acute Qualifiers: Laterality: right Lung location: lower lobe of lung Qualified Code(s): J18.1 - Lobar pneumonia, unspecified organism (2) Hemoptysis Priority: Primary Status: Acute (3) COPD (chronic obstructive pulmonary disease) Priority: Secondary Status: Chronic Qualifiers: COPD type: unspecified COPD Qualified Code(s): J44.9 - Chronic obstructive pulmonary disease, unspecified (4) Wound of left breast Priority: Secondary Status: Chronic Qualifiers: Encounter type: initial encounter Qualified Code(s): S21.002A - Unspecified open wound of left breast, initial encounter Hospital course: Ms. Trimble is a 68 year old female. The patient was admitted with hemoptysisstarted yesterday morning. She brings up very small amounts of blood. It is associated with somewhat increased in intensity coughing and wheezing. She has underlying COPD. CT of chest was done. It showed right lower lobe infiltrate, likely representing pneumonia. The patient was presented to pulmonary diseases service. She underwent a bronchoscopy; had BAL. She feels good. Her hemoptysis nearly subsided. She has mild cough but not wheezing. Her blood work from the day shows hemoglobin of 12.0 with WBC of 8.5 thousand. Her glucose level is elevated. I am discharging this patient home (agreed by pulmonary service). She will continue Levaquin. She will continue prednisone and nebulizer treatments. She will be seen by the pulmonary service in about 2 weeks. Discharge discussed with: patient, family, nurse - Time Spent with Patient Total time spent providing and/or coordinating discharge services: Greater than 30 minutes (40 minutes) - Discharge Medications Prescriptions: Levofloxacin [Levaquin] 500 mg PO QAM 5 Days #5 tablet predniSONE [PredniSONE] 20 mg PO QAM 5 Days #5 tablet Home Medications: Isosorbide MONOnitrate (24 HR) [Imdur] 15 mg PO HS 07/17/16 [History] Albuterol Neb [Proventil Neb] 2.5 mg IH Q4HR PRN 01/06/18 [History] Albuterol Sulfate [Proair Respiclick] 2 puff IH Q4H PRN 01/06/18 [History] Clopidogrel [Plavix] 75 mg PO DAILY 01/06/18 [History] Gemfibrozil [Lopid] 600 mg PO HS 01/23/18 [History] Atenolol [Tenormin] 50 mg PO DAILY 02/06/18 [History] Lisinopril [Zestril] 20 mg PO HS 02/06/18 [History] Metformin HCl [Glucophage] 1,000 mg PO BID 02/06/18 [History] Venlafaxine HCl [Venlafaxine HCl ER] 37.5 mg PO DAILY 02/06/18 [History] glipiZIDE [Glipizide] 10 mg PO DAILY 02/06/18 [History] Zolpidem [Ambien] 5 mg PO HS PRN 02/18/18 [History] Krill/Om-3/Dha/Epa/Phospho/Ast [Krill Oil 1,000 mg Softgel] 1 cap PO DAILY 05/07 [History] Thyroid,Pork [Nature-Throid] 65 mg PO DAILY 05/07/18 [History] Levofloxacin [Levaquin] 500 mg PO QAM 5 Days #5 tablet 05/08/18 [Rx] predniSONE [PredniSONE] 20 mg PO QAM 5 Days #5 tablet 05/08/18 [Rx] Allergies/Adverse Reactions: 3 Allergy/AdvReac Type Severity Reaction Status Date / Time acetaminophen Allergy Hives Verified 05/07/18 11:34 meperidine [From Demerol] Allergy Hives Verified 05/07/18 11:34 sertraline [From Zoloft] Allergy Swelling Verified 05/07/18 11:34 of Lip/Tongue/Throat terbutaline [From Brethine] Allergy Hives Verified 05/07/18 11:34 Date of admission: 05/07/18 12:05 Primary care physician: Lin Templeton CNP Consults: 05/07/18 15:52 Consult to Wound Care [CONS] Routine Reason for Consult: Unhealed wound Call Completed: No Discharging clinician: Chico Cardenas Anticipated date of discharge: 05/08/18 - Constitutional Vitals: Temp Pulse Resp BP Pulse Ox 97.5 F L 105 19 119/78 91 05/08/18 11:21 05/08/18 11:21 05/08/18 11:21 05/08/18 11:21 05/08/18 11:21 General appearance: Present: A&O X 3, no acute distress, answers questions appropriately - Patient Status Disposition: Home, Self-Care Condition: Fair Functional capacity at discharge: independent ambulation Overall status at discharge: patient is progressing back to baseline - Discharge Instructions Instructions: Chronic Obstructive Pulmonary Disease (GEN), Acute Hemoptysis ( GEN) Follow Up With: Lin Templeton CNP [Primary Care Provider] - (Web Requests Sent on 05/09/18) Mustapha Fontana MD [Partnered Physician] - (web request sent 05/09/18) Additional Instructions: FOLLOW UP WITH PULMONARY DISEASES IN ABOUT 4 WEEKS.. - Diet and Activity Activity: resume usual activities as tolerated Diet: diabetic diet - VTE Documentation of Mechanical Device: Intermittent pneumatic compression device
[2018-05-08 16:09] VITALS: BP 111/71
[2018-05-08] MEDS ORDERED: *HR* Metformin 500 MG TABLET PO SCH (17:00)
--- NOTE | 2018-05-08 18:34 | Physician Discharge Referral ---
Home Health/Hosp Referral Info Transfer to: Home Health Attending Provider: Rinku MACK Provider in Charge Post Discharge: PCP - Diagnosis (1) Community acquired pneumonia Priority: Primary Status: Acute (2) Hemoptysis Priority: Primary Status: Acute (3) COPD (chronic obstructive pulmonary disease) Priority: Secondary Status: Chronic (4) Wound of left breast Priority: Secondary Status: Chronic - Respiratory Orders Oxygen / L per min (2 L/MIN; FOR PULSE-OX BELOW 88%) Smoking Cessation: Smoking cessation has been advised. For more information, call the [place] Tobacco Quit Line at 6-514-BBQW-NOW. - Diet/Nutrition Diet/Nutrition Orders: Cardiac - Activity Activity Orders: Up ad jacqueline - Services Needed Following services are medically necessary services: Nursing - Transfer Medications Prescriptions: Levofloxacin [Levaquin] 500 mg PO QAM 5 Days #5 tablet predniSONE [PredniSONE] 20 mg PO QAM 5 Days #5 tablet Home Medications: Isosorbide MONOnitrate (24 HR) [Imdur] 15 mg PO HS 07/17/16 [History] Albuterol Neb [Proventil Neb] 2.5 mg IH Q4HR PRN 01/06/18 [History] Albuterol Sulfate [Proair Respiclick] 2 puff IH Q4H PRN 01/06/18 [History] Clopidogrel [Plavix] 75 mg PO DAILY 01/06/18 [History] Gemfibrozil [Lopid] 600 mg PO HS 01/23/18 [History] Atenolol [Tenormin] 50 mg PO DAILY 02/06/18 [History] Lisinopril [Zestril] 20 mg PO HS 02/06/18 [History] Metformin HCl [Glucophage] 1,000 mg PO BID 02/06/18 [History] Venlafaxine HCl [Venlafaxine HCl ER] 37.5 mg PO DAILY 02/06/18 [History] glipiZIDE [Glipizide] 10 mg PO DAILY 02/06/18 [History] Zolpidem [Ambien] 5 mg PO HS PRN 02/18/18 [History] Krill/Om-3/Dha/Epa/Phospho/Ast [Krill Oil 1,000 mg Softgel] 1 cap PO DAILY 05/07 [History] Thyroid,Pork [Nature-Throid] 65 mg PO DAILY 05/07/18 [History] Levofloxacin [Levaquin] 500 mg PO QAM 5 Days #5 tablet 05/08/18 [Rx] predniSONE [PredniSONE] 20 mg PO QAM 5 Days #5 tablet 05/08/18 [Rx] Allergies/Adverse Reactions: 3 Allergy/AdvReac Type Severity Reaction Status Date / Time acetaminophen Allergy Hives Verified 05/07/18 11:34 meperidine [From Demerol] Allergy Hives Verified 05/07/18 11:34 sertraline [From Zoloft] Allergy Swelling Verified 05/07/18 11:34 of Lip/Tongue/Throat terbutaline [From Brethine] Allergy Hives Verified 05/07/18 11:34 Certification: Further, I certify that my clinical findings support that this patient is homebound (i.e. absences from home require considerable and taxing effort and are for medical reasons or [employer] services or infrequently or short duration when for other reasons) because: Homebound Reason: Leaving home requires considerable and taxing effort due to condition Attestation: My signature below is to certify that this patient is under my care and that I, or nurse practitioner, or a physician's assistant pastry chef working with me, has a face-to -face encounter with this patient.
[2018-05-09] MEDS ORDERED: THYROID PORK 32.5 MG PO SCH (06:30)
[2018-05-09] MEDS ORDERED: PHOSPHO PO SCH (09:00)
[2018-05-09] MEDS ORDERED: *HR* GlipiZIDE 5 MG TABLET PO SCH (09:00)
[2018-05-09] MEDS ORDERED: EPA PO SCH (09:00)
[2018-05-09] MEDS ORDERED: DHA PO SCH (09:00)
[2018-05-09] MEDS ORDERED: KRILL PO SCH (09:00)
[2018-05-09] MEDS ORDERED: AST PO SCH (09:00)
[2018-05-09] MEDS ORDERED: [UNRECOGNIZED DRUG - OTHER] PO SCH (09:00)
[2018-05-10 13:24] LABS: Influenza A PCR Body Fluid NOT DETECTED; Influenza B PCR Body Fluid NOT DETECTED; RVP Body Fluid Source BAL
[2018-05-11 13:46] LABS: RSV PCR Body Fluid NOT DETECTED
== END 2018-05-08 18:59 | disposition home or self-care (01) ==
LOC: EMEROOARM 08:38 → 2ANU 08:38 → SUATTDRO 12:05 → 2ANU 13:13
PROVIDERS: ADMIT Internal Medicine; ATTEND Internal Medicine